=== PATIENT | female | born 1955 | race Caucasian/White ===

== ENCOUNTER 2016-12-17 16:31 | Inpatient (IN) | payer BC ==
[2016-12-17] MEDS ORDERED: PEG 3350-NA SULF,BICARB,CL/KCL 4,000 ML BOTTLE PO ONE (17:59)
[2016-12-17] MEDS ORDERED: RX INFO: IV CONTRAST WAS GIVEN 1 EACH MISC MISCELLANE PRN (18:00)
[2016-12-17 19:02] LABS: Aty Lym Flag Marked; CH 30.4; CHCM 33.4; HCT 37.4 % (34.0-46.0); HDW 2.52; HGB 12.3 gm/dL (11.4-16.0); MCHC 32.8 g/dL (31.0-37.0); MCV 91.5 fL (80.0-100.0); Mean Platelet Volume 6.5; RBC 4.09 m/uL (3.80-5.40); RDW 12.7 % (11.5-15.5); WBC 5.9 k/uL (3.8-10.6); WBC (Perox) 6.04
[2016-12-17] MEDS: SODIUM CHLORIDE 0.9% 1,000 ML IV SCH (19:04)
[2016-12-17 19:12] LABS: Prothrombin Time 10.5 sec (9.0-12.0)
[2016-12-17 19:22] LABS: ALT 39 U/L (9-52); AST 23 U/L (14-36); Alkaline Phosphatase 102 U/L (38-126); Anion Gap 9 mmol/L; Blood Urea Nitrogen 17 mg/dL (7-17); Calcium 9.2 mg/dL (8.4-10.2); Carbon Dioxide 29 mmol/L (22-30); Chloride 100 mmol/L (98-107); Glucose 87 mg/dL (74-99); Non-African American GFR(MDRD) >60 (>60 ml/min/1.73 sqM); Sodium 138 mmol/L (137-145); Total Bilirubin 0.4 mg/dL (0.2-1.3); Total Protein 6.6 g/dL (6.3-8.2)
[2016-12-17] MEDS: PANTOPRAZOLE 40 MG/10 ML VIAL IVP SCH (19:27)
[2016-12-17 19:45] LABS: Add Differential Manual Differential
[2016-12-17 19:47] LABS: Nucleated Red Blood Cells 0 /100 WBC (0-0); Total Cells Counted 100
[2016-12-17 19:48] LABS: Large Platelets Present; Polychromasia Present
--- NOTE | 2016-12-17 22:43 | CT ---
EXAMINATION TYPE: CT ABDOMEN PELVIS W CON DATE OF EXAM: 12/17/2016 6:49 PM COMPARISON: NONE HISTORY: Rectal bleeding x 6 weeks. Black, tarry stools x [address] DLP: 799.60 mGycm. Automated exposure control for dose reduction was used. TECHNIQUE: Helical acquisition of images was performed from the lung bases through the pelvis. CONTRAST: Performed without Oral Contrast and with IV Contrast, patient injected with 100 mL of Omnip aque 300. FINDINGS: LUNG BASES:Right lung base has a 1.0 cm calcification consistent with healed granuloma. LIVER/GB: No significant abnormality is appreciated, but a 3 cm simple appearing left hepatic cyst is noted. PANCREAS: No significant abnormality is seen. SPLEEN: No significant abnormality is seen. ADRENALS: No significant abnormality is seen. KIDNEYS: No significant abnormality is seen. ABDOMINAL ADENOPATHY: None visualized REPRODUCTIVE ORGANS: No significant abnormality is seen URINARY BLADDER: No significant abnormality is seen. PELVIC ADENOPATHY: The presacral space shows multifocal 1 cm lymph nodes, rising alongside the left superior rectal vasculature just left of midline - suspicious for possible lower rectal process. OSSEOUS STRUCTURES: No significant abnormality is seen. BOWEL: No significant abnormality is seen. IMPRESSION: GEOGRAPHIC PATTERN OF 1 CM LYMPH NODES IN THE PRESACRAL SPACE, WOULD SUGGEST ENDOSCOPIC COLONIC VISUA LIZATION.
[2016-12-18] MEDS: SODIUM CHLORIDE 0.9% 1,000 ML IV SCH (07:36)
[2016-12-18] MEDS: PANTOPRAZOLE 40 MG/10 ML VIAL IVP SCH (07:39)
[2016-12-18] MEDS ORDERED: IV FLUID CONTINUATION 1,000 ML IV ONE (14:17)
[2016-12-18] MEDS ORDERED: PROPOFOL 10 MG/ML 20 ML VIAL IV ONE (15:32)
--- NOTE | 2016-12-18 15:47 | P.GSCN ---
History of Present Illness Consult date: 12/18/16 Reason for Consult: GI bleed History of present illness: This is a 61-year-old female who has been admitted for GI bleed. Patient has had a week history of fluctuating rectal bleeding. Apparently she has a history of colitis. She had a previous colonoscopy performed at [facility] in September. 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 History of Any Multi-Drug Resistant Organisms: None Reported Past Surgical History: Orthopedic Surgery, Tonsillectomy, Tubal Ligation Additional Past Surgical History / Comment(s): SX TO CORRECT"CROSSED EYES", SOCO CATARACTS, RT KNEE SX(TORN CARTILAGE), COLONOSCOPY. Past Anesthesia/Blood Transfusion Reactions: Motion Sickness Additional Past Anesthesia/Blood Transfusion Reaction / Comm: CLAUSTERPHOBIC( MRI MACHINES) Past Psychological History: No Psychological Hx Reported Smoking Status: Never smoker Past Alcohol Use History: None Reported Past Drug Use History: None Reported - Past Family History Mother Family Medical History: CVA/TIA, Myocardial Infarction (PR), Mitral Valve Prolapse (MVP) Additional Family Medical History / Comment(s): LUPUS-AFFECTED HER HEART. MULTIPLE PR'S, MVP,STROKE BEFORE AGE 40 Father Family Medical History: COPD Additional Family Medical History / Comment(s): EMPHYSEMA. MYELDYSPLASIA AT AGE 66. Medications and Allergies Home Medications Medication Instructions Recorded Confirmed Type Cetirizine HCl [Zyrtec ODT] 10 mg PO DAILY 12/17/16 12/17/16 History Dextroamphetamine/Amphetamine 15 mg PO QAM 12/17/16 12/17/16 History [Adderall Xr] Escitalopram Oxalate [Lexapro] 10 mg PO HS 12/17/16 12/17/16 History Fish Oil/Dha/Epa [Fish Oil 1,200 1 cap PO DAILY 12/17/16 12/17/16 History mg Fish Oil] Magnesium Malate 1 tab PO DAILY 12/17/16 12/17/16 History Mesalamine [Asacol Hd] 1,600 mg PO BID 12/17/16 12/17/16 History Montelukast Sodium [Singulair] 10 mg PO DAILY 12/17/16 12/17/16 History Multivitamins, Thera [Multivitamin] 1 tab PO DAILY 12/17/16 12/17/16 History Allergies Allergy/AdvReac Type Severity Reaction Status Date / Time Penicillins Allergy Rash/Hives Verified 12/17/16 17:18 Surgical - Exam Vital Signs Temp Pulse Resp BP Pulse Ox 97.8 F 78 16 123/69 95 12/17/16 18:46 12/17/16 18:46 12/17/16 18:46 12/17/16 18:46 12/17/16 18:46 - General well developed, no distress - Eyes PERRL - ENT normal pinna - Neck no masses - Respiratory normal expansion - Cardiovascular Rhythm: regular - Abdomen Abdomen: soft, non tender Results - Labs 12/17/16 18:48 12/17/16 18:48 Diabetes panel 12/17/16 Range/Units 18:48 Sodium 138 (137-145) mmol/L Potassium 5.0 (3.5-5.1) mmol/L Chloride 100 (98-107) mmol/L Carbon Dioxide 29 (22-30) mmol/L BUN 17 (7-17) mg/dL Creatinine 0.86 (0.52-1.04) mg/dL Glucose 87 (74-99) mg/dL Calcium 9.2 (8.4-10.2) mg/dL AST 23 (14-36) U/L ALT 39 (9-52) U/L Alkaline Phosphatase 102 (38-126) U/L Total Protein 6.6 (6.3-8.2) g/dL Albumin 3.8 (3.5-5.0) g/dL Calcium panel 12/17/16 Range/Units 18:48 Calcium 9.2 (8.4-10.2) mg/dL Albumin 3.8 (3.5-5.0) g/dL Pituitary panel 12/17/16 Range/Units 18:48 Sodium 138 (137-145) mmol/L Potassium 5.0 (3.5-5.1) mmol/L Chloride 100 (98-107) mmol/L Carbon Dioxide 29 (22-30) mmol/L BUN 17 (7-17) mg/dL Creatinine 0.86 (0.52-1.04) mg/dL Glucose 87 (74-99) mg/dL Calcium 9.2 (8.4-10.2) mg/dL Adrenal panel 12/17/16 Range/Units 18:48 Sodium 138 (137-145) mmol/L Potassium 5.0 (3.5-5.1) mmol/L Chloride 100 (98-107) mmol/L Carbon Dioxide 29 (22-30) mmol/L BUN 17 (7-17) mg/dL Creatinine 0.86 (0.52-1.04) mg/dL Glucose 87 (74-99) mg/dL Calcium 9.2 (8.4-10.2) mg/dL Total Bilirubin 0.4 (0.2-1.3) mg/dL AST 23 (14-36) U/L ALT 39 (9-52) U/L Alkaline Phosphatase 102 (38-126) U/L Total Protein 6.6 (6.3-8.2) g/dL Albumin 3.8 (3.5-5.0) g/dL Assessment and Plan Plan: GI bleed. We'll perform EGD and colonoscopy
--- NOTE | 2016-12-18 16:09 | P.OP ---
Date of Procedure: 12/18/16 Preoperative Diagnosis: GI bleed Postoperative Diagnosis: Mild antral gastritis Random rectal biopsy No evidence of upper or lower GI bleed Procedure(s) Performed: EGD Colonoscopy Anesthesia: MAC Surgeon: Jean Mittal Pathology: other (Antrum, esophagus) Condition: stable Disposition: PACU Description of Procedure: The patient's placed on the endoscopy table in the lateral position. She received IV sedation. The gastroscope some placed oropharynx and passed in the esophagus and into the stomach. The scope was then placed through the pylorus. First and second portion of the duodenum appeared normal. The scope was then brought back and the antrum this appeared mildly inflamed. A biopsies performed. The scope was unretroflexed and remainder of the stomach appeared normal. The GE junction was at 40 cms. The distal esophagus appeared normal. The proximal esophagus appeared normal. Scope was then withdrawn. There is no evidence of blood in the laparoscope. Next digital rectal exam was performed which revealed no abnormalities. The flexible colonoscope was then placed patient anus and passed throughout the entire colon. The ileocecal valve was visualized. The cecum, ascending and transverse and descending and sigmoid colon appeared normal. Scope was then brought back the rectum and this appeared normal. A random biopsies performed. Scope was withdrawn for patient. There is no evidence of colitis or GI bleed.
[2016-12-18 16:30] VITALS: BP 122/54; PULSE 62; RESP 16; TEMP 97.9
--- NOTE | 2016-12-18 17:10 | HP ---
DATE OF ADMISSION: CHIEF COMPLAINT: A 61-year-old white female admitted with GI bleed. She did have large amounts of black tarry stool after having amount of significant amounts of bright red bleeding over the past 2 to 3 weeks. She has a possible history of some colitis. She is admitted due to severe GI bleed, lightheaded, dizziness and inability to ambulate. PAST MEDICAL HISTORY: Lupus, she takes Adderall for ADHD, possible tumor on her pituitary, possible macular degeneration, ulcerative colitis. SURGERIES: Orthopedic surgery, tonsillectomy, tubal ligation, right knee torn cartilage, cataracts. FAMILY HISTORY: Mother with CVA, TIA, myocardial infarction, mitral valve prolapse, lupus, multiple myocardial infarctions, stroke before age 45. Father had COPD, myelodysplasia. HOME MEDICATIONS: 1. Zyrtec 10 mg daily. 2. Adderall XR 15 daily. 3. Lexapro 10 daily. 4. Fish oil daily. 5. Mag sulfate 1 tablet daily. 6. Asacol 1600 mg b.i.d. 7. Singular 10 mg daily. 8. Multivitamin daily. ALLERGIES: PENICILLIN. PHYSICAL EXAM: Fourteen-point review of systems negative except for what is in HPI. Temperature 97.8, pulse 70s, respirations 18, blood pressure 140s over 80s. O2 96% on room air. CONSTITUTIONAL: Well-developed ( ). Skin is dry. Poor skin turgor. ENT: External ear canals within normal limits. No pharyngeal erythema or exudate or hypertrophy. NECK: Supple. No mass. LUNGS: Show clear to auscultation. HEART: Regular rate and rhythm. ABDOMEN: Soft, nontender. VASCULAR: Normal dorsalis pedis, posterior tibial, and radial pulse. GI: Diffuse tenderness, increased bowel sounds x4. Hemoglobin 12.3, sodium 138, potassium 5.0, ( ) 3.5, creatinine 0.86. ASSESSMENT: 1. Acute gastrointestinal bleed. 2. Dizziness, weakness secondary to gastrointestinal bleed and dehydration. Will rehydrate her. Home medicines will be continued for lupus. EGD and colonoscopy will be done tomorrow. Prep is being done at this time. Possible discharge home after scopes.
--- NOTE | 2016-12-19 09:59 | DS ---
DATE OF ADMISSION: 12/17/2016 DATE OF DISCHARGE: 12/18/2016 DISCHARGE DIAGNOSES: 1. Gastrointestinal bleed. 2. History of ulcerative colitis. 3. Anxiety. 4. Gastroesophageal reflux disease. 5. Obesity. PLAN: Continue home medications. CONDITION: Stable. PROGNOSIS: Guarded. HOSPITAL COURSE OF EVENTS: This is a white female who was admitted to the hospital with GI bleeding. Hemoglobin is 12.8 on admission. She underwent EGD and colonoscopy. No signs of bleeding were seen. The patient will be set up at home and follow up in my office in 2 to 3 days for another CBC as endoscopies were negative. CAT scan was negative except for possible something in the colon which was not visualized on colonoscopy. No acute bleeding. The ( ) otherwise visualized.
== END 2016-12-18 17:55 | disposition home or self-care (01) | DRG 379 ==
LOC: 5MS5E 16:35
PROVIDERS: ADMIT Family Medicine; ATTEND Family Medicine
PROC: 0DB68ZX Excision of Stomach, Via Natural or Artificial Opening Endoscopic, Diagnostic (ICD-10-PCS; principal; 2016-12-18 07:30)
PROC: 0DJD8ZZ Inspection of Lower Intestinal Tract, Via Natural or Artificial Opening Endoscopic (ICD-10-PCS; 2016-12-18 07:30)
DX: K92.2 Gastrointestinal hemorrhage, unspecified (principal); D49.7 Neoplasm of unspecified behavior of endocrine glands and other parts of nervous system; E86.0 Dehydration; E66.9 Obesity, unspecified; F41.9 Anxiety disorder, unspecified; F90.9 Attention-deficit hyperactivity disorder, unspecified type; K21.9 Gastro-esophageal reflux disease without esophagitis; K29.60 Other gastritis without bleeding; H35.30 Unspecified macular degeneration; F40.240 Claustrophobia; Z79.899 Other long term (current) drug therapy; Z88.8 Allergy status to other drugs, medicaments and biological substances; Z82.49 Family history of ischemic heart disease and other diseases of the circulatory system
CPT/HCPCS: 43239; 45380; 74177; 80053; 85025; 85610; 88305; 88342; 99153

== ENCOUNTER → 2022-10-23 | Outpatient (CLI) | payer MEDICARE, BC ==
--- NOTE | 2022-10-23 22:51 | BD ---
EXAMINATION TYPE: Axial Bone Density DATE OF EXAM: 10/23/2022 COMPARISON: NONE CLINICAL HISTORY: 67 years year old Female. ICD-10 CODE: Z78.0 ASYMPTOMATIC MENOPAUSAL WITHOUT HRT Height: 62.5 IN Weight: 177 LBS RISK FACTORS HISTORY OF: Active: YES Postmenopausal woman: AGE 53 Take estrogen and/or progesterone medications: NOT NOW How long: TOOK CONTROL FOR 8 YEARS MEDICATIONS: Additional Medications: VIT D, ADDERALL, ANXIETY MEDS, SINGULAIR, BLOOD PRESSURE MEDS EXAM MEASUREMENTS: Bone mineral densitometry was performed using the [employer]tv System. Bone mineral density as measured about the Lumbar spine is: ----- L1-L4(G/cm2): 1.543 T Score Values are as follows: ----- L1: 1.2 ----- L2: 3.1 ----- L3: 4.0 ----- L4: 3.5 ----- L1-L4: 3.0 Bone mineral density BASELINE Bone mineral density about the R hip (g/cm2): 0.855 Bone mineral density about the L hip (g/cm2): 0.893 T Score values are as follows: -----R Neck: -1.3 -----L Neck: -1.0 -----R Total: -0.2 -----L Total: -0.5 Bone mineral density BASELINE FRAX%s: The graph provided illustrates a 8.6 chance for a major osteoporotic fx and a 0.9 chance for the hips probability for fx in 10 years time. IMPRESSION: Osteopenia (T Score between -2.5 and -1). There is slightly increased risk of fracture and the patient may be considered for treatment. Re-Screen 2-5 years. NOTE: T-SCORE=SD OF THE YOUNG ADULT MEAN.
--- NOTE | 2022-10-26 08:11 | MM ---
Reason for Exam: Screening (asymptomatic). Last mammogram was performed 7 year(s) and 5 month(s) ago. Patient History: Menarche at age 13. First Full-Term at age 27. Postmenopausal. Paternal aunt had breast cancer, age 65. Maternal aunt had breast cancer, age 55. Maternal aunt had breast cancer, age 54. Risk Values: Brittany 5 year model risk: 1.9%. NCI Lifetime model risk: 6.4%. Prior Study Comparison: 08/16/2012 Bilateral Screening Mammogram, [facility]. 11/17/2013 Bilateral Screening Mammogram, [facility]. 05/27/2015 Bilateral Screening Mammogram, [facility]. Tissue Density: The breast tissue is heterogeneously dense. This may lower the sensitivity of mammography. Findings: Analyzed By CAD. Benign appearing vascular calcification in the left breast is redemonstrated. There are benign-appearing right axillary lymph nodes and benign-appearing vascular calcifications right breast now seen. There is no suspicious new group of microcalcifications or new suspicious mass in either breast. Overall Assessment: Benign, BI-RAD 2 Management: Screening Mammogram of both breasts in 1 year. A clinical breast exam by your physician is recommended on an annual basis and results should be correlated with mammographic findings. Electronically signed and approved by: Cheng Johnson M.D.
== END | disposition home or self-care (01) ==
LOC: RADMAMWWP 07:46
PROVIDERS: ATTEND Family Medicine
DX: Z12.31 Encounter for screening mammogram for malignant neoplasm of breast (principal); M85.89 Other specified disorders of bone density and structure, multiple sites; Z78.0 Asymptomatic menopausal state; Z80.3 Family history of malignant neoplasm of breast
CPT/HCPCS: 77063; 77067; 77080